=== PATIENT | male | born 1940 | race Caucasian/White ===

== ENCOUNTER → 2025-01-22 | Outpatient (CLI) | payer MEDICARE, SELFPAY ==
--- NOTE | 2025-01-22 10:50 | RAD_ITS ---
PROCEDURE: SHOULDER MIN 2 VIEWS 01/22/2025 REASON FOR EXAM: INTERNAL DERANGEMENT OF RIGHT SHOULDER TECHNIQUE: SHOULDER MIN 2 VIEWS COMPARISON: No FINDINGS: Advanced glenohumeral osteoarthritis with [id number], subchondral sclerosis, cysts, osteophytes. Mild AC joint osteoarthritis. No acute bone, soft tissue, or lung pathology. RAD/Shoulder min 2 Views IMPRESSION: Right shoulder degeneration. [facility]
== END | disposition home or self-care (01) ==
LOC: LAB.FUTURE 10:34 → RAD 10:38
DX: M24.111 Other articular cartilage disorders, right shoulder (principal)
CPT/HCPCS: 73030

== ENCOUNTER → 2025-02-19 | Outpatient (CLI) | payer MEDICARE, SELFPAY ==
--- NOTE | 2025-02-19 15:35 | RAD_ITS ---
PROCEDURE: TOE(S) MIN 2 VIEWS 02/19/2025 REASON FOR EXAM: PAIN TECHNIQUE: Three-view right 1st toe Laterality: Right COMPARISON: None. RAD/Toe(s) Min 2 Views IMPRESSION: No radiopaque foreign body is seen. Moderate degenerative changes are seen of the right 5th proximal interphalangea l joint, with associated marked joint narrowing. Moderate degenerative changes are seen of the 1st interphalangeal joint, with a ssociated significant joint narrowing. Moderate degenerative changes seen of the right 1st metatarsophalangeal joint, with significant partial joint narrowing, as well as cortical irregularity. No significant hallux valgus is seen. No acute fracture or dislocation is evident. Reading Location: [id number]
== END | disposition home or self-care (01) ==
LOC: MTRAD 15:35
PROVIDERS: Referring Provider Physician Assistant; Visit Provider Physician Assistant
DX: M79.674 Pain in right toe(s) (principal)
CPT/HCPCS: 73660